=== PATIENT | male | born 1960 | race Caucasian/White ===

== ENCOUNTER 2023-02-20 10:19 | Inpatient (IN) | payer OTHER ==
[2023-02-20 10:45] VITALS: BMI 33.4
[2023-02-20 11:13] LABS: BASO % 0.5 % (0-2.0); EOS % 3.8 % (0-4.5); HEMOGLOBIN 13.5 GM/dL (11.7-16.9); LYMPH % 21.3 % (8-40); MCH 29.1 pg (25.7-33.7); MCHC 33.8 g/dl (32.0-35.9); MEAN CELL VOLUME 86.3 fl (80-96); MEAN PLT VOLUME 7.2 fl (7.5-11.1); MONO % 7.8 % (3.8-10.2); NEUT % 66.6 % (42.8-82.8); PLATELET COUNT 155 10^3/uL (134-434); RBC 4.64 M/mm3 (4.00-5.60); RDW 14.6 % (11.9-15.9); WHITE BLOOD COUNT 5.8 K/mm3 (4.0-10.0)
[2023-02-20 11:22] LABS: INR 1.03 (0.83-1.09); PROTHROMBIN TIME (PATIENT) 11.9 SEC (9.7-13.0)
[2023-02-20 11:25] LABS: ACTIVATED PTT 32.7 SECONDS (25.2-36.5)
[2023-02-20 11:30] LABS: POTASSIUM 4.2 mmol/L (3.5-5.1)
[2023-02-20 11:32] LABS: BLOOD UREA NITROGEN 18.8 mg/dL (7-18); CALCIUM 8.9 mg/dL (8.5-10.1)
[2023-02-20 11:33] LABS: ALBUMIN 3.3 g/dl (3.4-5.0)
[2023-02-20 11:35] LABS: CREATININE 0.7 mg/dL (0.55-1.3)
[2023-02-20 11:37] LABS: BILIRUBIN,TOTAL 0.5 mg/dL (0.2-1); TOT PROT 6.3 g/dl (6.4-8.2)
[2023-02-20] MEDS ORDERED: ALBUTEROL SO4 2.5/IPRATROPIUM 0.5 INH SOL 3 ML VIAL.NEB. NEB ONE ×3 (14:00→18:06)
[2023-02-20] MEDS ORDERED: ASPIRIN 81 MG CHEWABLE TABLETS PO ONE (16:15)
[2023-02-20] MEDS ORDERED: methylPREDNISolone NA SUCC 125 MG/2 ML VIAL IVPB ONE (16:15)
[2023-02-20] MEDS ORDERED: ASPIRIN 81 MG CHEWABLE TABLETS ONE (16:19)
[2023-02-20] MEDS ORDERED: methylPREDNISolone NA SUCC 125 MG/2 ML VIAL ONE (16:19)
[2023-02-20] MEDS: ALBUTEROL SO4 2.5/IPRATROPIUM 0.5 INH SOL 3 ML VIAL.NEB. NEB SCH (21:40)
[2023-02-21] MEDS ORDERED: ACETAMINOPHEN 1000 MG/100 ML BAG IVPB PRN (01:18)
[2023-02-21] MEDS ORDERED: TRIMETHOBENZAMIDE HCL 200MG/2ML INJ IM ONE (05:35)
[2023-02-21] MEDS ORDERED: ALBUTEROL SO4 HFA INHALER IH ONE (05:35)
[2023-02-21] MEDS ORDERED: methaDONE HCL 10 MG TABLET PO SCH (06:45)
[2023-02-21] MEDS: ALBUTEROL SO4 2.5/IPRATROPIUM 0.5 INH SOL 3 ML VIAL.NEB. NEB SCH ×4 (07:25→20:03)
[2023-02-21 07:40] LABS: BASO % 0.1 % (0-2.0); HEMATOCRIT 41.7 % (35.4-49); LYMPH % 9.5 % (8-40); MCH 29.6 pg (25.7-33.7); MCHC 33.6 g/dl (32.0-35.9); MEAN CELL VOLUME 88.1 fl (80-96); MEAN PLT VOLUME 8.2 fl (7.5-11.1); MONO % 3.7 % (3.8-10.2); NEUT % 86.7 % (42.8-82.8); PLATELET COUNT 172 10^3/uL (134-434); RBC 4.73 M/mm3 (4.00-5.60); RDW 14.2 % (11.9-15.9); WHITE BLOOD COUNT 7.8 K/mm3 (4.0-10.0)
[2023-02-21 08:18] LABS: POTASSIUM 4.8 mmol/L (3.5-5.1)
[2023-02-21 08:20] LABS: BLOOD UREA NITROGEN 18.4 mg/dL (7-18); CALCIUM 8.7 mg/dL (8.5-10.1)
[2023-02-21 08:21] LABS: ALBUMIN 3.3 g/dl (3.4-5.0); MAGNESIUM 1.9 mg/dL (1.8-2.4)
[2023-02-21 08:23] LABS: PHOSPHOROUS 3.3 mg/dL (2.5-4.9)
[2023-02-21 08:24] LABS: CREATININE 0.6 mg/dL (0.55-1.3)
[2023-02-21 08:25] LABS: BILIRUBIN,TOTAL 0.5 mg/dL (0.2-1); TOT PROT 6.5 g/dl (6.4-8.2)
[2023-02-21] MEDS: ASPIRIN 81 MG CHEWABLE TABLETS PO SCH (10:40)
[2023-02-21] MEDS: ENOXAPARIN NA (PORCINE) 40 MG/0.4 ML DISP.SYRIN SQ SCH (10:40)
[2023-02-21] MEDS: LISINOPRIL 5 MG TABLET PO SCH (16:02)
[2023-02-21 18:03] LABS: COCAINE, UR NEGATIVE (NEGATIVE); URINE BARBITURATES NEGATIVE (NEGATIVE)
[2023-02-21 18:04] LABS: PHENCYCLIDINE,URINE NEGATIVE (NEGATIVE); URINE AMPHETAMINES NEGATIVE (NEGATIVE); URINE BENZODIAZEPINES NEGATIVE (NEGATIVE)
[2023-02-21 18:06] LABS: METHADONE, UR POSITIVE (NEGATIVE); OPIATES, URI POSITIVE (NEGATIVE)
[2023-02-22 06:57] LABS: POTASSIUM 4.3 mmol/L (3.5-5.1)
[2023-02-22 07:00] LABS: ALBUMIN 3.2 g/dl (3.4-5.0); CALCIUM 8.7 mg/dL (8.5-10.1); MAGNESIUM 2.1 mg/dL (1.8-2.4)
[2023-02-22 07:01] LABS: BLOOD UREA NITROGEN 19.1 mg/dL (7-18)
[2023-02-22 07:03] LABS: CREATININE 0.7 mg/dL (0.55-1.3); PHOSPHOROUS 3.3 mg/dL (2.5-4.9)
[2023-02-22 07:06] LABS: BILIRUBIN,TOTAL 0.6 mg/dL (0.2-1); TOT PROT 6.1 g/dl (6.4-8.2)
[2023-02-22] MEDS: ALBUTEROL SO4 2.5/IPRATROPIUM 0.5 INH SOL 3 ML VIAL.NEB. NEB SCH ×4 (07:57→20:00)
[2023-02-22] MEDS ORDERED: REGADENOSON 0.4 MG/5 ML PRE-FILLED SYRINGE IVPUSH ONE ×2 (09:15→10:45)
[2023-02-22] MEDS: LISINOPRIL 5 MG TABLET PO SCH (11:40)
[2023-02-22] MEDS: ENOXAPARIN NA (PORCINE) 40 MG/0.4 ML DISP.SYRIN SQ SCH (11:42)
[2023-02-22] MEDS: ASPIRIN 81 MG CHEWABLE TABLETS PO SCH (11:42)
[2023-02-22] MEDS ORDERED: LISINOPRIL 5 MG TABLET PO ONE (11:56)
[2023-02-22] MEDS: methylPREDNISolone NA SUCC 40 MG/1 ML VIAL IVPUSH SCH ×2 (15:43→22:42)
[2023-02-22] MEDS: NICOTINE 21 MG/24 HOURS TOPICAL PATCH TD SCH (15:43)
[2023-02-22] MEDS: FLUTICASONE/UMECLIDIN/VILANTER(200-62.5-25 TRELEGY ELLIPTA) INAHLER IH SCH (17:22)
[2023-02-23] MEDS: methylPREDNISolone NA SUCC 40 MG/1 ML VIAL IVPUSH SCH ×3 (06:31→22:34)
[2023-02-23] MEDS: ALBUTEROL SO4 2.5/IPRATROPIUM 0.5 INH SOL 3 ML VIAL.NEB. NEB SCH ×4 (07:50→19:52)
[2023-02-23] MEDS: ASPIRIN 81 MG CHEWABLE TABLETS PO SCH (09:45)
[2023-02-23] MEDS: ENOXAPARIN NA (PORCINE) 40 MG/0.4 ML DISP.SYRIN SQ SCH (09:45)
[2023-02-23] MEDS: NICOTINE 21 MG/24 HOURS TOPICAL PATCH TD SCH (09:45)
[2023-02-23] MEDS: LISINOPRIL 10 MG TABLET PO SCH (09:45)
[2023-02-23] MEDS: FLUTICASONE/UMECLIDIN/VILANTER(200-62.5-25 TRELEGY ELLIPTA) INAHLER IH SCH (09:46)
[2023-02-24 06:20] VITALS: RESP 18
[2023-02-24] MEDS: methylPREDNISolone NA SUCC 40 MG/1 ML VIAL IVPUSH SCH ×2 (07:10→15:06)
[2023-02-24 07:31] LABS: BASO % 0.2 % (0-2.0); HEMATOCRIT 43.1 % (35.4-49); HEMOGLOBIN 14.5 GM/dL (11.7-16.9); LYMPH % 7.9 % (8-40); MCH 29.6 pg (25.7-33.7); MCHC 33.7 g/dl (32.0-35.9); MEAN CELL VOLUME 87.9 fl (80-96); MEAN PLT VOLUME 7.9 fl (7.5-11.1); MONO % 4.2 % (3.8-10.2); NEUT % 87.7 % (42.8-82.8); PLATELET COUNT 197 10^3/uL (134-434); RBC 4.91 M/mm3 (4.00-5.60); WHITE BLOOD COUNT 10.9 K/mm3 (4.0-10.0)
[2023-02-24 07:39] LABS: POTASSIUM 4.6 mmol/L (3.5-5.1)
[2023-02-24 07:46] LABS: ALBUMIN 3.4 g/dl (3.4-5.0); BLOOD UREA NITROGEN 19.7 mg/dL (7-18); CALCIUM 9.2 mg/dL (8.5-10.1)
[2023-02-24 07:50] LABS: CREATININE 0.7 mg/dL (0.55-1.3)
[2023-02-24 07:51] LABS: BILIRUBIN,TOTAL 0.6 mg/dL (0.2-1); TOT PROT 6.7 g/dl (6.4-8.2)
[2023-02-24] MEDS: ALBUTEROL SO4 2.5/IPRATROPIUM 0.5 INH SOL 3 ML VIAL.NEB. NEB SCH ×3 (08:20→15:10)
[2023-02-24] MEDS: LISINOPRIL 10 MG TABLET PO SCH (09:29)
[2023-02-24] MEDS: ASPIRIN 81 MG CHEWABLE TABLETS PO SCH (09:29)
[2023-02-24] MEDS: ENOXAPARIN NA (PORCINE) 40 MG/0.4 ML DISP.SYRIN SQ SCH (09:29)
[2023-02-24] MEDS: NICOTINE 21 MG/24 HOURS TOPICAL PATCH TD SCH (09:30)
[2023-02-24] MEDS: FLUTICASONE/UMECLIDIN/VILANTER(200-62.5-25 TRELEGY ELLIPTA) INAHLER IH SCH (09:30)
[2023-02-24 14:38] VITALS: BP 126/77; PULSE 72; TEMP 98.7
== END 2023-02-24 17:14 | disposition home or self-care (01) | DRG 133 ==
LOC: JER 10:19 → JERBED 10:48 → J4S 18:57
PROVIDERS: ADMIT Internal Medicine; ATTEND Internal Medicine
DX: J96.21 Acute and chronic respiratory failure with hypoxia (principal); I11.0 Hypertensive heart disease with heart failure; I50.22 Chronic systolic (congestive) heart failure; J44.1 Chronic obstructive pulmonary disease with (acute) exacerbation; I44.7 Left bundle-branch block, unspecified; R07.9 Chest pain, unspecified; R91.1 Solitary pulmonary nodule
CPT/HCPCS: 0241U-QW; 36415; 70450-TC; 71045-TC-FY; 71275-TC; 73630-TC-LT; 78452-TC; 80053; 80307; 83036; 83735; 83880; 84100; 84484; 85025; 85610; 85730; 93005; 93010; 93017; 93306-TC; 93308; 94640; 94761; 97116-GP; 97162-GP; 99285-25; A9502; J2785; Q9967